=== PATIENT | male | born 1945 | race Two or more races ===

== ENCOUNTER 2024-06-27 13:42 | Emergency (ER) | payer OTHER ==
[~2024-06-27] VITALS: Ht 175.3 cm; Wt 58.1 kg
[2024-06-27] MEDS ORDERED: VITAMIN B-150 MG PO (15:08)
[2024-06-27] MEDS ORDERED: LEVALBUTEROL HCL 1.25 MG/3 ML SOLUTION IH ONE (16:30)
[2024-06-27 16:57] LABS: HEMATOCRIT 31.3 % (39.0-48.0); HEMOGLOBIN 10.6 g/dL (13-16.00); MEAN CELL VOLUME 77.1 fL (80.0-100.00); MEAN CORPUSCULAR HEMOGLOBIN 26.1 pg (27.00-32.0); MEAN CORPUSCULAR HGB CONC 33.9 g/dl (32.0-36.0); PLATELET COUNT 361 K/uL (150-450); RED BLOOD COUNT 4.06 M/uL (4.00-6.00); RED CELL DISTRIBUTION WIDTH 17.1 % (11.5-14.5)
[2024-06-27] MEDS ORDERED: LEVALBUTEROL HCL 0.63 MG/3 ML SOLUTION IH ONE (16:59)
[2024-06-27 17:27] LABS: INR 1.1; PARTIAL THROMBOPLASTIN TIME 29.4 SECONDS (22.0-34.0); PROTHROMBIN TIME 11.9 SECONDS (9.0-11.5)
[2024-06-27 17:38] LABS: ALBUMIN 2.5 gm/dL (3.4-5.0); BILIRUBIN TOTAL 0.48 mg/dL (0.3-1.2); CALCIUM 7.6 mg/dL (8.5-10.1); CREATININE SERUM 0.66 mg/dL (0.70-1.30); GFR 117.03; GLOBULINA 3.6 G/DL (2.4-3.5); POTASSIUM 4.69 mEq/L (3.5-5.1); TOTAL PROTEIN 6.1 gm/dL (6.4-8.2)
[2024-06-27 18:24] LABS: INFLUENZA A AG NEGATIVE (NEGATIVE)
[2024-06-27 19:45] LABS: PH,URINE 5.5 (5.0-8.0); URINE APPEARANCE Clear; URINE BILIRRUBIN Negative (NEGATIVE); URINE BLOOD Negative; URINE COLOR Dark Yellow; URINE GLUCOSE Negative (NEGATIVE); URINE KETONE Negative (NEGATIVE); URINE LEUKOCYTE Negative; URINE NITRATE Negative; URINE PROTEIN Trace (NEGATIVE)
[2024-06-27 19:49] LABS: URINE BACTERIA 36.7 uL (0.0-1933); URINE CAST 9.13 uL (0.0-1.40); URINE EPITHELIAL CELLS 29.9 uL (0.0-38.8); URINE RBC 7.2 uL (0.0-20.8); URINE WBC 10.1 uL (0.0-23.2)
[2024-06-27 20:21] LABS: COVID-19 AG NEGATIVE (NEGATIVE)
[2024-06-27 20:32] LABS: URINE MUCUS MODERATE
[2024-06-27 22:36] LABS: ABG PH 7.442 (7.35-7.45); ABG PO2 87.6 mmHg (80-100); ABG pCO2 34.3 mmHg (35-45); BASE EXCESS -0.6 mmol/l; BICARBONATE 22.9 mmol/l (23-25); SaO2 97.1 %; Tco2 23.9 mmol/l
[2024-06-27 22:38] LABS: puncture site RADIAL RIGHT
[2024-06-27 22:39] LABS: allen test SATISFACTORY; mode ROOM AIR; o2 21 %
== END 2024-06-27 21:26 | disposition home or self-care (01) ==
LOC: ER 13:42
PROVIDERS: General Practice
DX: R06.02 Shortness of breath (principal); R53.83 Other fatigue; C61 Malignant neoplasm of prostate; C77.9 Secondary and unspecified malignant neoplasm of lymph node, unspecified; C79.51 Secondary malignant neoplasm of bone; N20.0 Calculus of kidney